=== PATIENT | male | born 1990 | race African-American/Black ===

== ENCOUNTER 2017-02-20 15:59 | Emergency (ER) | payer BC, MEDICAID ==
[2017-02-20 16:07] VITALS: BP 135/76
--- NOTE | 2017-02-20 17:48 | ED Physician Documentation ---
PD HPI MALE - Stated complaint Stated Complaint: MALE - Chief complaint Chief Complaint: General - History obtained from History obtained from: Patient - History of Present Illness Timing - onset: How many days ago (had contact with new sexual partner (likely single contact per patient) several days ago. No noted symptoms. Is concerned about exposure to STDs as did not have condom. Would like testing for and treatment for CG/Chlamydia.) Associated symptoms: No: Dysuria, Discharge, Genital sore / lesion PD HPI MALE CONTRIB FACTORS: Sexually active. No: Exposed to STD Similar symptoms before: Has not had sx before Recently seen: Not recently seen Review of Systems Constitutional: denies: Fever, Chills, Myalgias Nose: denies: Rhinorrhea / runny nose, Congestion Throat: denies: Sore throat Respiratory: denies: Cough : denies: Dysuria, Frequency, Discharge PD PAST MEDICAL HISTORY - Past Medical History Past Medical History: No - Past Surgical History Past Surgical History: Yes - Present Medications Home Medications: Ambulatory Orders Medication Instructions Recorded Confirmed No Known Home Medications [No 02/20/17 02/20/17 Known Home Medications] - Allergies Allergies/Adverse Reactions: Allergies Allergy/AdvReac Type Severity Reaction Status Date / Time No Known Drug Allergies Allergy Verified 02/20/17 16:07 - Social History Does the pt smoke?: Yes Smoking Status: Current every day smoker Does the pt drink ETOH?: Yes Does the pt have substance abuse?: Yes Substance Use and Type: Marijuana - Immunizations Immunizations are current?: No - POLST Patient has POLST: No PD ED PE NORMAL - Vitals Vital signs reviewed: Yes - General General: Alert and oriented X 3, No acute distress, Well developed/nourished - Abdomen Abdomen: Soft, Non distended - Male Male : Deferred - Back Back: No CVA TTP - Derm Derm: Normal color, Warm and dry Results - Labs Labs: Laboratory Tests 02/20/17 16:25 C.trachomatis RNA (TMA) NOT DETECTED Chlamydia/GC Comment SEE NOTE N.gonorrhoeae RNA (TMA) NOT DETECTED PD MEDICAL DECISION MAKING - ED course Complexity details: considered differential (contact without condom use with new person, without known contact to STDs but he is concerned about it. Would like testing and empiric treatment for GC/Chlamydia. We discussed herpes and HIV as well and did not want empiric for those, and I talked about being too early for testing per se. To follow up PCP or Health Dept in about a month for testing. ), d/w patient Departure - Departure Disposition: 01 Home, Self Care Clinical Impression: Possible exposure to STD Condition: Stable Record reviewed to determine appropriate education?: Yes Comments: You have been treated for the common STDs. The actual culture will result in 3 days or so and we will call you if there are positive. Again you have been treated preemptively so you are covered but you would still want to know. If you to develop any genital sores or flulike illnesses in the next few weeks, then he may need testing for other potential infection such as herpes or HIV. Discharge Date/Time: 02/20/17 18:34
[2017-02-20] MEDS ORDERED: AZITHROMYCIN 250 MG TABLET PO STA (18:09)
[2017-02-20] MEDS ORDERED: cefTRIAXone 500 MG VIAL IM STA (18:09)
[2017-02-20] MEDS ORDERED: ONDANSETRON ODT 4 MG TABLET TL STA (18:10)
[2017-02-20] MEDS ORDERED: AZITHROMYCIN 250 MG TABLET PO ONE (18:20)
[2017-02-20] MEDS ORDERED: ONDANSETRON ODT 4 MG TABLET ONE (18:20)
[2017-02-20] MEDS ORDERED: cefTRIAXone 500 MG VIAL ONE (18:20)
[2017-02-20] MEDS ORDERED: LIDOCAINE 1% 2 ML VIAL ONE (18:21)
== END 2017-02-20 18:34 | disposition home or self-care (01) ==
LOC: ED 15:59
DX: Z20.2 Contact with and (suspected) exposure to infections with a predominantly sexual mode of transmission (principal); F17.200 Nicotine dependence, unspecified, uncomplicated
CPT/HCPCS: 87491; 87591; 96372; 99283; A9270; Q0162; 87081

== ENCOUNTER 2017-05-01 11:16 | Outpatient (CLI) | payer MEDICAID ==
[2017-05-01 18:46] LABS: BASOPHILS % (AUTO) 0.8 %; EOSINOPHILS # (AUTO) 0.2 10^3/uL (0.0-0.7); EOSINOPHILS % (AUTO) 3.5 %; HCT - HEMATOCRIT 48.7 % (42.0-52.0); HGB - HEMOGLOBIN 16.2 g/dL (14.0-18.0); LYMPHOCYTES # (AUTO) 1.1 10^3/uL (1.5-3.5); LYMPHOCYTES % (AUTO) 19.6 %; MEAN CORPUSCULAR HEMOGLOBIN 31.4 pg (27.0-31.0); MEAN CORPUSCULAR HGB CONC 33.2 g/dL (32.0-36.0); MEAN CORPUSCULAR VOLUME 94.5 fL (80.0-94.0); MEAN PLATELET VOLUME 10.6 fL (7.4-11.4); MONOCYTES # (AUTO) 0.4 10^3/uL (0.0-1.0); MONOCYTES % (AUTO) 7.9 %; NEUTROPHILS # (AUTO) 3.8 10^3/uL (1.5-6.6); NEUTROPHILS % (AUTO) 68.2 %; NUCLEATED RED BLOOD CELLS AUTO 0.2 /100WBC; RED BLOOD COUNT 5.16 10^6/uL (4.70-6.10); RED CELL DISTRIBUTION WIDTH 12.3 % (12.0-15.0); UNCORRECTED WHITE BLOOD COUNT 5.6 x10^3/uL; WHITE BLOOD COUNT 5.6 x10^3/uL (4.8-10.8)
[2017-05-01 19:04] LABS: ALBUMIN/GLOBULIN RATIO 1.5 (1.0-2.2); BILIRUBIN,TOTAL 0.5 mg/dL (0.2-1.0); BUN - BLOOD UREA NITROGEN 14 mg/dL (6-20); CALCIUM 9.2 mg/dL (8.5-10.3); CARBON DIOXIDE - CO2 29 mmol/L (21-32); CHLORIDE 101 mmol/L (101-111); CHOL/HDL RATIO 3.4 (<5.0); CHOLESTEROL 179 mg/dL; CREATININE 1.1 mg/dL (0.6-1.2); GFR - MDRD 98 (>89); GLUCOSE 95 mg/dL (70-100); HDL CHOLESTEROL 53 mg/dL; LDL/HDL RATIO 2.1 (<3.6); POTASSIUM 4.3 mmol/L (3.5-5.0); SODIUM 138 mmol/L (135-145); TOTAL PROTEIN 7.6 g/dL (6.7-8.2); TRIGLYCERIDES 64 mg/dL; VLDL CHOLESTEROL 13 mg/dL
== END 2017-05-01 11:17 | disposition home or self-care (01) ==
LOC: LAB.N 11:16
PROVIDERS: ATTEND Nurse Practitioner Gerontology
DX: Z13.9 Encounter for screening, unspecified (principal)
CPT/HCPCS: 36415; 80050; 80061

== ENCOUNTER 2017-05-05 21:23 | Emergency (ER) | payer MEDICAID ==
[2017-05-05] MEDS ORDERED: IBUPROFEN 800 MG TABLET PO STA (21:35)
[2017-05-05] MEDS ORDERED: oxyCODONE/ACET 5/325 Prepack 4 PO STA (21:35)
--- NOTE | 2017-05-05 21:37 | ED Physician Documentation ---
PD HPI LOWER EXT INJURY - Stated complaint Stated Complaint: DENTAL PAIN - History obtained from History obtained from: Patient - History of Present Illness PD HPI LOW EXT INJURY LOCATION: Other (He was seen here recently for dental pain from a right mandibular molar. He was seen in the interim at [facility], however they do not do root canals and he is being referred out for that. He is having increasing pain radiates up and down the face with may be some fevers at night but nothing measured. No facial swelling.) Review of Systems Constitutional: reports: Fever. denies: Chills, Myalgias Ears: reports: Reviewed and negative Nose: reports: Reviewed and negative Throat: reports: Dental pain / toothache PD PAST MEDICAL HISTORY - Past Surgical History Past Surgical History: Yes - Present Medications Home Medications: Ambulatory Orders Medication Instructions Recorded Confirmed Amoxicillin 500 mg PO Q8H #30 capsule 04/21/17 oxyCODONE [Roxicodone] 5 mg PO Q4-6H PRN #4 tablet 04/21/17 Amoxicillin 500 mg PO TID #30 capsule 05/05/17 Ibuprofen [Motrin] 800 mg PO Q8H PRN #30 tablet 05/05/17 Oxycodone HCl/Acetaminophen 1 - 2 tab PO Q4H PRN #15 tablet 05/05/17 [Percocet 5-325 mg Tablet] - Allergies Allergies/Adverse Reactions: Allergies Allergy/AdvReac Type Severity Reaction Status Date / Time No Known Drug Allergies Allergy Verified 04/21/17 14:13 - Social History Does the pt smoke?: Yes Smoking Status: Current every day smoker Does the pt drink ETOH?: Yes Does the pt have substance abuse?: Yes - Immunizations Immunizations are current?: No - POLST Patient has POLST: No PD ED PE NORMAL - Vitals Vital signs reviewed: Yes - General General: Alert and oriented X 3, No acute distress - HEENT HEENT: Other (Last molar on the right mandible has a large cavity on the posterior side but there is no sublingual edema or trismus, no palpable abscess , the tooth is tender though.) - Neuro Neuro: Alert and oriented X 3, Normal speech - Psych Psych: Normal mood, Normal affect Results - Vitals Vitals: Oxygen O2 Source Room air PD MEDICAL DECISION MAKING - ED course ED course: The [place] prescription monitoring program was queried with regard to this patient. No concerning findings were found. Departure - Departure Disposition: Home, Self Care Clinical Impression: Dental infection Condition: Good Record reviewed to determine appropriate education?: Yes Instructions: Dental Abscess Prescriptions: Amoxicillin 500 mg PO TID #30 capsule Ibuprofen [Motrin] 800 mg PO Q8H PRN #30 tablet PRN Reason: PAIN &/OR FEVER Oxycodone HCl/Acetaminophen [Percocet 5-325 mg Tablet] 1 - 2 tab PO Q4H PRN #15 tablet PRN Reason: Pain Comments: It is very important that she follow-up with a dentist. When it comes to dental problems like yours, the emergency department can only offer a short- term solution to your long-term problem. A couple of low cost options for dental care include: [facility] in [place], calls [phone] for an appointment Or [facility] in [place], call [phone] for an appointment. Do not drink or drive while taking narcotic pain medication. Note that many narcotic pain relievers also contain Tylenol/acetaminophen. Please ensure that your total dose of acetaminophen from all sources does not exceed 3 g (3000 mg) per day. You may get constipated while on this medication. Take a stool softener such as Colace twice a day while you are on it. Also add an [id number] laxative such as senna or MiraLAX on any day that you do not have a bowel movement. If you received a narcotic pain medication or sedative while in the emergency department, do not drive for the next 24 hours.
[2017-05-05 21:41] VITALS: BP 132/64
[2017-05-05] MEDS ORDERED: oxyCODONE/ACET 5/325 Prepack 4 PO ONE (21:52)
[2017-05-05] MEDS ORDERED: IBUPROFEN 800 MG TABLET PO ONE (21:53)
== END 2017-05-05 21:54 | disposition home or self-care (01) ==
LOC: ED 21:23
DX: K04.7 Periapical abscess without sinus (principal); F17.200 Nicotine dependence, unspecified, uncomplicated
CPT/HCPCS: 99283; A9270

== ENCOUNTER 2017-07-25 17:37 | Emergency (ER) | payer MEDICAID ==
--- NOTE | 2017-07-25 19:01 | ED Physician Documentation ---
PD HPI HEENT - Stated complaint Stated Complaint: TOOTH PX - Chief complaint Chief Complaint: Heent - History obtained from History obtained from: Patient - History of Present Illness Timing - onset: Other (He was here couple months ago for a right mandibular toothache, he has not been able to follow-up with the dentist, he did actually follow-up with the dentist but they cannot do root canals and he is working on a referral for that and getting the gaxiola together. Started hurting again a few days ago. No fevers.) Review of Systems Constitutional: denies: Fever, Chills Nose: denies: Rhinorrhea / runny nose, Congestion Cardiac: denies: Chest pain / pressure, Palpitations PD PAST MEDICAL HISTORY - Past Surgical History Past Surgical History: Yes - Present Medications Home Medications: Ambulatory Orders Medication Instructions Recorded Confirmed Amoxicillin 500 mg PO TID #30 capsule 07/25/17 Oxycodone HCl/Acetaminophen 1 - 2 tab PO Q4H PRN #15 tablet 07/25/17 [Percocet 5-325 mg Tablet] - Allergies Allergies/Adverse Reactions: Allergies Allergy/AdvReac Type Severity Reaction Status Date / Time No Known Drug Allergies Allergy Verified 07/25/17 17:49 - Social History Does the pt smoke?: Yes Smoking Status: Current every day smoker Does the pt drink ETOH?: Yes Does the pt have substance abuse?: Yes - Immunizations Immunizations are current?: No - POLST Patient has POLST: No PD ED PE NORMAL - Vitals Vital signs reviewed: Yes - General General: Alert and oriented X 3, No acute distress - HEENT HEENT: Other (Tender right mandibular molar with cavity, no trismus or sublingual edema, no facial swelling or gingival swelling.) - Neck Neck: Supple, no meningeal sign, No bony TTP - Neuro Neuro: Alert and oriented X 3, Normal speech - Psych Psych: Normal mood, Normal affect Results - Vitals Vitals: Vital Signs - 24 hr 07/25/17 17:45 Temperature 37.4 C Heart Rate 92 Respiratory 16 Rate Blood Pressure 126/70 O2 Saturation 99 Oxygen O2 Source Room air Departure - Departure Disposition: 01 Home, Self Care Clinical Impression: Pain due to dental caries Condition: Good Record reviewed to determine appropriate education?: Yes Instructions: ED Tooth Pain Prescriptions: Amoxicillin 500 mg PO TID #30 capsule Oxycodone HCl/Acetaminophen [Percocet 5-325 mg Tablet] 1 - 2 tab PO Q4H PRN #15 tablet PRN Reason: Pain Comments: It is very important that she follow-up with a dentist. When it comes to dental problems like yours, the emergency department can only offer a short- term solution to your long-term problem. A couple of low cost options for dental care include: [facility] in [place], calls [phone] for an appointment Or [facility] in [place], call [phone] for an appointment.
[2017-07-25 19:17] VITALS: BP 120/55
== END 2017-07-25 19:15 | disposition home or self-care (01) ==
LOC: ED 17:37
DX: K02.9 Dental caries, unspecified (principal); F17.200 Nicotine dependence, unspecified, uncomplicated
CPT/HCPCS: 99283

== ENCOUNTER 2017-08-29 10:34 | Emergency (ER) | payer MEDICAID ==
--- NOTE | 2017-08-29 12:31 | ED Physician Documentation ---
PD HPI HEENT - Stated complaint Stated Complaint: TOOTH PX - Chief complaint Chief Complaint: Heent - History obtained from History obtained from: Patient - History of Present Illness Timing - onset: Other (He has had ongoing problems with a right mandibular molar. Because of access issues he has not been able to see a dentist yet. Pain recurred a few days ago and is severe. No fevers.) Review of Systems Constitutional: denies: Fever, Chills Nose: denies: Rhinorrhea / runny nose, Congestion Cardiac: denies: Chest pain / pressure, Palpitations PD PAST MEDICAL HISTORY - Past Medical History Past Medical History: No - Past Surgical History Past Surgical History: Yes - Present Medications Home Medications: Ambulatory Orders Medication Instructions Recorded Confirmed Clindamycin [Cleocin] 300 mg PO Q6H 10 Days capsule 08/29/17 Oxycodone HCl/Acetaminophen 1 - 2 tab PO Q4H PRN #15 tablet 08/29/17 [Percocet 5-325 mg Tablet] - Allergies Allergies/Adverse Reactions: Allergies Allergy/AdvReac Type Severity Reaction Status Date / Time No Known Drug Allergies Allergy Verified 08/29/17 10:47 - Social History Does the pt smoke?: Yes Smoking Status: Current every day smoker Does the pt drink ETOH?: Yes Does the pt have substance abuse?: Yes - Immunizations Immunizations are current?: No - POLST Patient has POLST: No PD ED PE NORMAL - Vitals Vital signs reviewed: Yes - General General: Alert and oriented X 3, No acute distress - HEENT HEENT: Other (Tender right mandibular molar with large cavity and filling, no overlying gingival swelling, facial swelling, trismus, or sublingual edema.) - Neck Neck: Supple, no meningeal sign, No bony TTP - Neuro Neuro: Alert and oriented X 3, Normal speech Results - Vitals Vitals: Vital Signs - 24 hr 08/29/17 10:44 Temperature 36.7 C Heart Rate 52 L Respiratory 15 Rate Blood Pressure 127/80 O2 Saturation 99 Oxygen O2 Source Room air Departure - Departure Disposition: 01 Home, Self Care Clinical Impression: Dental infection Condition: Good Record reviewed to determine appropriate education?: Yes Instructions: ED Tooth Pain Prescriptions: Clindamycin [Cleocin] 300 mg PO Q6H 10 Days capsule Oxycodone HCl/Acetaminophen [Percocet 5-325 mg Tablet] 1 - 2 tab PO Q4H PRN #15 tablet PRN Reason: Pain Comments: It is very important that she follow-up with a dentist. When it comes to dental problems like yours, the emergency department can only offer a short- term solution to your long-term problem. A couple of low cost options for dental care include: [facility] in [place], calls [phone] for an appointment Or [facility] in [place], call [phone] for an appointment. The policy of this emergency department is to not give more than 3 prescriptions for narcotics or other controlled substances in any 1 year. You have already surpassed this benchmark and we cannot prescribe narcotics for you. I encourage you to follow up with your primary care physician or to establish care with a primary care physician for ongoing pain management. You are always welcome to seek emergency care here for this or new issues but there will likely be limitations in the prescription of narcotic pain medication.
[2017-08-29 12:51] VITALS: BP 137/82
== END 2017-08-29 12:44 | disposition home or self-care (01) ==
LOC: ED 10:34
DX: K04.7 Periapical abscess without sinus (principal); F17.200 Nicotine dependence, unspecified, uncomplicated
CPT/HCPCS: 99283

== ENCOUNTER 2017-10-11 19:28 | Emergency (ER) | payer MEDICAID ==
[2017-10-11 19:33] VITALS: BP 130/72
[2017-10-11] MEDS ORDERED: valACYclovir 500 MG TABLET PO STA (19:46)
[2017-10-11] MEDS ORDERED: predniSONE 20 MG TABLET PO STA (19:46)
--- NOTE | 2017-10-11 20:03 | ED Physician Documentation ---
History of Present Illness - Stated complaint Stated Complaint: NUMB FACE - Chief complaint Chief Complaint: Neuro - History obtained from History obtained from: Patient - History of Present Illness Timing: Yesterday Pain level max: 0 Pain level now: 0 Improved by: nothing Worsened by: nothing - Additonal information Additional information: R facial droop and numbness since yesterday. No other symptoms. No recent illness. Did have a dental infection recently that cleared with antibiotics. Review of Systems Constitutional: denies: Fever, Chills Eyes: denies: Decreased vision, Photophobia Ears: denies: Ear pain Nose: denies: Rhinorrhea / runny nose, Congestion Throat: denies: Sore throat Cardiac: denies: Chest pain / pressure Respiratory: denies: Cough GI: denies: Nausea, Vomiting, Diarrhea Skin: denies: Rash Musculoskeletal: denies: Neck pain, Back pain Neurologic: denies: Confused, Altered mental status, Headache PD PAST MEDICAL HISTORY - Past Medical History Past Medical History: No - Past Surgical History Past Surgical History: Yes - Present Medications Home Medications: Ambulatory Orders Medication Instructions Recorded Confirmed Clindamycin [Cleocin] 300 mg PO Q6H 10 Days capsule 08/29/17 Oxycodone HCl/Acetaminophen 1 - 2 tab PO Q4H PRN #15 tablet 08/29/17 [Percocet 5-325 mg Tablet] Valacyclovir HCl [Valtrex] 1,000 mg PO TID #21 tablet 10/11/17 predniSONE [Deltasone] 10 mg PO [id number] #42 tab 10/11/17 - Allergies Allergies/Adverse Reactions: Allergies Allergy/AdvReac Type Severity Reaction Status Date / Time No Known Drug Allergies Allergy Verified 10/11/17 19:33 - Social History Does the pt smoke?: Yes Smoking Status: Current every day smoker Does the pt drink ETOH?: Yes Does the pt have substance abuse?: Yes - Immunizations Immunizations are current?: No - POLST Patient has POLST: No PD ED PE NORMAL - Vitals Vital signs reviewed: Yes - General General: Alert and oriented X 3, No acute distress - HEENT HEENT: Moist mucous membranes - Neck Neck: Supple, no meningeal sign - Cardiac Cardiac: RRR - Respiratory Respiratory: No respiratory distress, Clear bilaterally - Abdomen Abdomen: Soft, Non tender, Non distended - Derm Derm: Warm and dry - Neuro Neuro: Alert and oriented X 3, Other (R sided facial droop forehead involved. + bells phenomenon and flattening of the nasolabial fold on the R. ) - Psych Psych: Normal mood, Normal affect Results - Vitals Vitals: Vital Signs - 24 hr 10/11/17 19:31 Temperature 36.8 C Heart Rate 92 Respiratory 18 Rate Blood Pressure 130/72 O2 Saturation 97 Oxygen O2 Source Room air PD MEDICAL DECISION MAKING - ED course Complexity details: considered differential, d/w patient ED course: Patient is a 27-year-old male who presents to the emergency department with Baker 's palsy. Started on prednisone and valacyclovir. Patient is otherwise neurologically normal. No involvement of the upper extremities or lower extremities. Otherwise normal cranial nerve exam. Patient counseled regarding signs and symptoms for which I believe and urgent re-evaluation would be necessary. Patient with good understanding of and agreement to plan and is comfortable going home at this time This document was made in part using voice recognition software. While efforts are made to proofread this document, sound alike and grammatical errors may occur. Patient was also counseled to use artificial tears and tape the right eyelid close especially at night when he is sleeping so he does not develop a corneal ulcer. Departure - Departure Disposition: 01 Home, Self Care Clinical Impression: Baker palsy Condition: Good Instructions: ED [place] Palsy Follow-Up: your,doctor in 1 week [Other] Prescriptions: predniSONE [Deltasone] 10 mg PO [id number] #42 tab Valacyclovir HCl [Valtrex] 1,000 mg PO TID #21 tablet Comments: Take all medications as prescribed. Use artificial tears every 30 mins to an hour while awake. Also use gel artificial tears at night and tape the R eye shut at night to prevent a corneal ulcer. Discharge Date/Time: 10/11/17 20:13
== END 2017-10-11 20:13 | disposition home or self-care (01) ==
LOC: ED 19:28
DX: G51.0 Bell's palsy (principal); F17.200 Nicotine dependence, unspecified, uncomplicated
CPT/HCPCS: 99283; A9270; J7512

== ENCOUNTER 2019-02-05 08:38 | Outpatient (CLI) | payer MEDICAID ==
[2019-02-05] MEDS ORDERED: GADOBUTROL 7.5 MMOL/7.5 ML VIAL ONE (09:03)
[2019-02-05] MEDS ORDERED: GADOBUTROL 7.5 MMOL/7.5 ML VIAL IVP ONE (09:59)
--- NOTE | 2019-02-05 11:23 | MRI Report ---
Reason: CALLOWAY'S PALSY, LEFT, FACIAL DROOP, HEADACHE Procedure Date: 02/05/2019 Accession Number: [id number] / [id number] Procedure: MRI - Brain W/WO CPT Code: FULL RESULT: EXAM: MRI BRAIN AND INTERNAL AUDITORY CANAL (IAC),WITHOUT AND WITH CONTRAST. EXAM DATE: 02/05/2019 10:06 AM. CLINICAL HISTORY: [place] palsy, left, facial droop, headache. Pain behind the left ear. COMPARISON: None. TECHNIQUE: Multiplanar, multisequence T1-weighted and fluid-sensitive MRI sequences of the brain and IACs were performed. Other: None. IV Contrast: 7.5 cc Gadavist. FINDINGS: Brain Volume: Normal for age. Parenchyma/Dura: No acute hemorrhage, mass, or acute infarct.No white matter lesions identified. No abnormal enhancement. Internal Auditory Canals (IACs): Abnormal enhancement is seen involving the labyrinthine segment of left cranial nerve 7 deep within the IAC proximal to the geniculate ganglion (axial series 1102, image 31; coronal series 1103, image 68; sagittal series 1101, image 49). Mild asymmetric enhancement of left tympanic and mastoid segments of cranial nerve 7 relative to right are noted as well. Otherwise, the IAC and CPA cisterns are unremarkable. No mass lesion is seen. The inner ear structure are symmetric and unremarkable. Ventricles/Cisterns: The ventricles, sulci, and cisterns are unremarkable. No abnormal extra-axial fluid collection or hemorrhage. Orbits: Symmetric and unremarkable. Sella Turcica: The pituitary gland, cavernous sinuses, suprasellar cistern and optic chiasm are unremarkable. Vasculature: Normal signal flow void is seen in the major arterial structures at the skull base. The left vertebral artery is dominant. The dural sinuses are patent and enhance normally. Sinuses: No acute sinus disease. Bones: No focal pathologic appearing marrow signal changes. Other: None. IMPRESSION: 1. Normal MRI of the brain without and with contrast. No acute abnormality. No abnormal parenchymal enhancement. 2. Mild focal enhancement involving labyrinthine segment of left cranial nerve 7 deep within the IAC. This is consistent with clinical history of [place] palsy, neuritis. No mass lesion is seen. RADIA
== END 2019-02-05 08:39 | disposition home or self-care (01) ==
LOC: DI 08:38
PROVIDERS: ATTEND Family Medicine
DX: G51.0 Bell's palsy (principal); R51 Headache
CPT/HCPCS: 70553; A9585

== ENCOUNTER 2022-03-27 08:00 | Outpatient (CLI) | payer MEDICAID ==
--- NOTE | 2022-03-27 15:20 | XRAY Report ---
PROCEDURE: Wrist 4 View RT INDICATIONS: R WRIST PX TECHNIQUE: 4 views of the wrist were acquired. COMPARISON: None FINDINGS: Bones: No fractures or dislocations. No suspicious bony lesions. Scaphoid view: Intact scaphoid. Soft tissues: No suspicious soft tissue calcifications. IMPRESSION: Intact right wrist. Reviewed by: Ramandeep Ovalle MD on 03/27/2022 3:19 PM PDT Approved by: Ramandeep Ovalle MD on 03/27/2022 3:19 PM PDT Station ID: [id number]
== END 2022-03-27 23:59 | disposition home or self-care (01) ==
LOC: DI.N 08:00
PROVIDERS: ATTEND Family Medicine
DX: M25.531 Pain in right wrist (principal)